=== PATIENT | male | born 1945 | race Caucasian/White ===

== ENCOUNTER → 2024-10-08 10:25 | Outpatient (REF) | payer MEDICARE, BC, SELFPAY | LOC: RCS 10:25 | PROVIDERS: ATTENDING PHYSICIAN Internal Medicine; FAMILY PHYSICIAN Student in an Organized Health Care Education/Training Program | DX: I50.21 Acute systolic (congestive) heart failure (principal) | CPT/HCPCS: 93306 ==

== ENCOUNTER 2024-10-09 08:48 | Day surgery (SDC) | payer MEDICARE, BC, SELFPAY ==
[2024-10-09] VITALS (10 sets, daily range): BP systolic 134–157; BP diastolic 80–125; BMI 23.7
[2024-10-09] MEDS: NSS 224 ML IV (10:15)
[2024-10-09 15:05] LABS: ACT-LR - POC 231 Seconds (116-155)
[2024-10-09 15:29] LABS: ACT-LR - POC 248 Seconds (116-155)
--- NOTE | 2024-10-09 19:43 | ITS.CL.PN ---
Java Web Architect - Procedure Note
Procedure
Procedure Note:
CARDIAC CATHETERIZATION REPORT
Date of Procedure: 10/09/2024
Referring: Dr. Christiano Amaral MD
Indication: cardiac arrest, heart failure with severely reduced ejection fraction
PROCEDURE(S)
1. right heart catheterization
2. left heart catheterization
3. coronary angiography
4. iFR LAD
ACCESS
1. 6F right radial artery (closure: radial band)
2. 5F right antecubital vein (closure: manual hemostasis)
CATHETERS
1. 5F [place]
2. 6F JR4
3. 6F JL5
4. 6F JL5 guide catheter
MODERATE SEDATION: 45 minutes of moderate sedation was utilized. An independent medical equipment technician was present to assist with and help manage the patient's level of consciousness and physiologic status.
ULTRASOUND GUIDED VASCULAR ACCESS (right radial artery): Ultrasound was utilized for vascular access. The vessel was visualized under ultrasound and noted to be patent. An image of the vessel was stored permanently in the patient's medical record.
Under direct ultrasound guidance, vascular access was obtained using a modified Seldinger technique and a 6 [place] sheath was placed.
ULTRASOUND GUIDED VASCULAR ACCESS (right brachial vein): Ultrasound was utilized for vascular access. The vessel was visualized under ultrasound and noted to be patent. An image of the vessel was stored permanently in the patient's medical record.
Under direct ultrasound guidance, vascular access was obtained using a modified Seldinger technique and a 5 [place] sheath was placed.
HEMODYNAMIC DATA
LV 138/14 (EDP 29) mmHg
AO 143/75 (mean 103) mmHg
RA 9 mmHg
RV 49/6 (EDP 10) mmHg
PA 47/21 (mean 31) mmHg
PCWP 23 mmHg
SaO2 93.7%
SvO2 68.0%
Hb 10.8 g/dL
CO/CI 6.36/3.31 L/min/m2
SVR 1182 dsc*-5
PVR 1.3 Wood units
CORONARY ANGIOGRAPHY
Dominance: Right
LM: Large, normal
LAD: Large vessel giving rise to a small D1, moderate caliber D2, and moderate caliber D3. There are tandem tubular 60% and 40% stenoses of the mid LAD between D2 and D3. These are angiographically mildly progressed from 2021. These were assessed
further with IFR.
LCx: Large vessel giving rise to a small OM1, moderate caliber OM 2, and large OM 3. There is no coronary artery disease.
RCA: Large vessel giving rise to a moderate caliber RPDA and moderate caliber RPL branch. There are trivial luminal irregularities only.
iFR of LAD
An Omni wire was flushed and zeroed outside the body and then advanced to the left main. The wire introducer was removed and the catheter flushed with saline, after which pressure of the wire and guide were normalized. The wire was advanced to the
mid LAD and iFR recorded at 0.91 (non-significant). iFR pullback was performed noting a focal pattern with most of the contribution from the proximal lesion. On return to the left main, iFR appropriately normalized to 0.98, confirming lack of wire
drift.
RADIATION: dose 748 mGy; DAP 45.5 Gy*cm2; fluoroscopy time 17.6 min
CONCLUSIONS
1. Nonobstructive coronary artery disease as described with iFR negative stenosis of the mid LAD and otherwise trivial luminal irregularities only. Coronary artery disease does not explain the patient's recent intraprocedural cardiac arrest.
2. Moderately elevated biventricular filling pressures, moderate postcapillary pulmonary hypertension, normal cardiac output, and no aortic stenosis.
RECOMMENDATIONS
1. Aggressive secondary prevention of coronary artery disease
2. Medical management of diastolic heart failure
Copy to: Dr. Christiano Amaral MD (syrup filterer); Dr. Shahbaz Orourke MD (PCP)
Signed: Osmani Matos MD, PhD
== END 2024-10-09 19:42 | disposition home or self-care (01) ==
LOC: CATH 08:48
PROVIDERS: ATTENDING PHYSICIAN Student in an Organized Health Care Education/Training Program; FAMILY PHYSICIAN Internal Medicine; OTHER PHYSICIAN Internal Medicine
DX: I25.10 Atherosclerotic heart disease of native coronary artery without angina pectoris (principal); I46.9 Cardiac arrest, cause unspecified; Z86.74 Personal history of sudden cardiac arrest; I27.29 Other secondary pulmonary hypertension; I50.30 Unspecified diastolic (congestive) heart failure; I10 Essential (primary) hypertension
CPT/HCPCS: 76937; 93460; 93799; 99152; 99153; C1769; C1887; C1894

== ENCOUNTER 2024-10-19 07:54 | Day surgery (SDC) | payer MEDICARE, BC, SELFPAY ==
[2024-10-19] VITALS (13 sets, daily range): BP systolic 99–141; BP diastolic 61–96; BMI 23.7
--- NOTE | 2024-10-19 08:48 | PTCARENOTE ---
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 Pt asymptomatic. Pt denies dizziness, lightheadedness, chest pain, and or SOB at this time. Michelle HORNER aware and in to evaluate pt. EKG ordered and performed with Michelle HORNER at pt
bedside. Immediately after obtaining EKG, pt's heart rate dropped into the 80's. Michelle HORNER ordered repeat EKG which was obtained. Both EKG's given to Michelle HORNER. Pt remains asymptomatic. Pt is here for EP study. Will continue to monitor.
--- NOTE | 2024-10-19 11:46 | ITS.EPS ---
Automatic Grinder Operator - EPS Report
EPS
Procedure Report:
Electrophysiology study:
Mr. Mills is a very pleasant 79 yr old gentleman with h/o cardiac arrest and noted to have LVEF of 10% at [facility] on 10/09/24 at showing non-obstructive disease with mid LAD 50% and otherwise trivial luminal irregularities
is noted to have frequent tachycardia episodes and was noted to have wide QRS complex with tachycardia and is sent for electrophysiology (EP) study and if ventricular arrhythmia is inducible then possible ICD placement.
Date of the Procedure:
10/19/2024
Indications: Wide-complex tachycardia
Pre-Operative Diagnosis: Wide-complex tachycardia with frequent PVCs
Post-Operative Diagnosis: Incessant supraventricular tachycardia with frequent PVCs.
Procedure Performed: EP study
Performing physician:
Liz Youngblood MD
Anesthesia:
See anesthesia records
Detailed Description of the Procedure:
Written informed consent was obtained from the patient after a full explanation of the risks and benefits of the procedure including the risks of sedation and anesthesia.
The patient was brought to the electrophysiology laboratory in stable condition in fasting state. Continuous electrocardiographic and hemodynamic monitoring was initiated. The initial rhythm was normal sinus.
The procedure site was meticulously prepared with surgical scrub and allowed to dry with no pooling. Sterile draping was applied to cover the procedure site. The image intensifier was draped with sterile bag and positioned over the patient.
After infusion of local anesthetic, vascular access was obtained under ultrasound guidance and sheaths were placed over guide wire as detailed below.
Sheaths:
��������� 7Fr sheath in right femoral vein
��������� 6Fr sheath in right femoral vein
��������� 6Fr sheath in right femoral vein
Catheters:
��������� 6Fr - Elmo Quad-cath at RVa
��������� 6Fr -Elmo-cath at HRA
��������� Decapolar Bard catheter - at locations of CS
Baseline intervals (milliseconds):
PP interval (baseline cycle length): 806
P wave duration: 123
TN interval: 212
QRS duration:130
QT interval: 410
AH interval: 108
His duration: 12
HV interval: 68
Q onset to RVa: 0
Sinus Node Function:
Burst pacing was performed from the right atrium to measure the sinus node recovery time (SNRT) and corrected sinus node recovery time (cSNRT). The sinus node functions are within acceptable normal range.
Atrioventricular Erin Function:
Atrial stimulation with incremental pacing intervals was performed from the high right atrium (HRA) and right ventricular apex (RVa) and antegrade and retrograde atrioventricular (AV) block cycle lengths were determined. The antegrade AV Wenckebach
was noted at 360 msec.
Patient had incessant tachycardia and full EP study could not be done.
The tachycardia was studied.
Tachycardia:
The tachycardia was studies with a cycle length of 480 msec. The tachycardia was concentric and had short VA time. The QRS was wide but similar to baseline IVCD. The abberation was likely due to tachycardia.
The tachycardia was entrained from the ventricle and the proximal and distal CS. The ventricle was out of the tachycardia cycle and attempt from the entrainment from CS maneuver terminated the tachycardia.
Following observations were noted.�
a) Simultaneous A and V (Septal VA interval of <70 ms was at 18msec).
b) Ventricular Overdrive pacing demonstrated a VAHV response
c) SA-VA >85 (214 � 18)
d) PPI-TCL >115msec (617 msec)
e) His Synchronous PVCs had no effect on the tachycardia and early PVC was able to terminate the tachycardia.
f) His synchronous PAC was not able to dissociate the atrium from the tachycardia.
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
There was different tachycardia noted at 370 msec with wobble of up to 500 msec that terminated with atrial pacing. This could be atrial tachycardia. The AVNRT was incessant and AT could not be studies in detail.
Ventricular stimulation showed concentric, midline and decremental retrograde conduction through the AV node and retrograde AV erin ERP could not be assessed accurately due to frequent PVCs.
There was slow AV conduction noted at baseline. There was dual pathway present but clear jump could not be assessed due to PVC and incessant tachycardia.
Ventricular Function:
Single ventricular extrastimuli were delivered following drive train of 600 msec and 400 msec the ventricular ERP was determined 220 msec. The ventricular electrical functions are within acceptable range.
Para-Hisian pacing:
The proximal CS was noted in the RA and the conduction from the RVa showed possible VA pathway and the Para-Hisian pacing was attempted. The high voltage captured the His with narrow QRS and VA time was 86 msec. The low voltage captured the RV with
wide QRS and the VA time was 168 msec. This is a erin response and septal accessory pathway was ruled out.�
Arrhythmia Induction:
Programmed stimulation including single, double and triple extrastimuli were delivered from the RVa. The burst pacing from the RVa was also attempted. The RVa was paced as per MUSTT protocol with no arrhythmia induced at drive train of 600 and then
at 400 msec with S1, S2, S3 and S4.
There was no arrhythmia induced with aggressive induction maneuvers.
No sustained ventricular arrhythmia was inducible. Patient however, continued to go into SVT.
Patient reported left chest pain with ventricular pacing. Further studies was not done due to fast rates.
Procedure End
Following the completion of the EP study, catheters were removed. The sheaths were removed and hemostasis achieved with manual compression.
Estimated Blood loss:
<5 cc
Specimens Removed:
None.
Implants / Devices:
None
Urine output:
None
Packs / Drains/ Tubes:
None
Instrument / Sponge Count Correct:
Yes
Complications of the Procedure:
None
Condition of Patient at Time of Transfer:
Hemodynamically stable with no neurological or vascular compromise.
Summary:
s/p electrophysiology study no sustained ventricular arrhythmia noted with incessant supra-ventricular tachycardia likely AVNRT and a second arrhythmia of atrial tachycardia.
Recommendation:
Admit overnight for observation
Bed side ECHO to rule out pericardial effusion
Possible SVT ablation in AM. 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
--- NOTE | 2024-10-19 14:39 | CM ---
Reviewed chart. Met with and Mrs. Mills to review discharge plans. He states prior to admission he rresides with his spouse in a two story home without any steps to enter. . He states he has a full flight of steps to get to bedroom/full
bathroom. He states he a powder room on the first floor. He states prior to admission he was independent with ambulation and adls. He states he does not have any DME in the home. He states he has a prescription plan and uses [facility]. The
discharge plan is to return home with his spouse when medically stable,
--- NOTE | 2024-10-19 15:58 | PTCARENOTE ---
received pt from brush clearing laborer at 1200. monitor placed. NSR with first degree block and occasional PVC. VSS. right femoral vein with figure 8 suture intact, dressing dry and intact. distal pulses palpable. On admission, pt stated last drink was 09/29/24,
[facility] protocol initiated and Michelle Mark PLATING MACHINE OPERATOR aware. Oriented to room and surroundings. call jensen within reach.
--- NOTE | 2024-10-19 16:06 | PTCARENOTE ---
Right femoral vein sutures removed per protocol. pt tolerated well. HOB elevated 30 degrees. instructed pt to call before getting OOB. pt verbalized understanding.
[2024-10-19] MEDS: THIAMINE INJECTION 200 MG IV (20:00)
[2024-10-19] MEDS: BENADRYL 50 MG PO (23:47)
[2024-10-20] VITALS (14 sets, daily range): BP systolic 114–136; BP diastolic 74–98; BMI 23.7
[2024-10-20 05:12] LABS: Hematocrit 33.1 % (39.0-52.0); Hemoglobin 11.4 g/dL (13.0-18.0); Mean Corp Hgb Conc. 34.4 g/dL (33.0-37.0); Mean Corpuscular Hgb 33.3 pg (27.0-31.0); Mean Corpuscular Volume 96.8 fL (80.0-94.0); Mean Platelet Volume 9.4 fL (7.4-10.4); Platelet Count 192 10^3/uL (130-400); Red Blood Cell Count 3.42 10^6/uL (4.70-6.10); Red Cell Dist. Width 12.4 % (11.5-14.5); White Blood Cell Count 5.9 10^3/uL (4.8-10.8)
[2024-10-20 05:42] LABS: Blood Urea Nitrogen 23 mg/dl (9-20); Calcium 9.3 mg/dl (8.4-10.2); Carbon Dioxide 25 mmol/L (22-30); Chloride 104 mmol/L (98-107); Estimated Creatinine Clearance 60 ml/min; Glucose 92 mg/dl (70-99); Magnesium 1.8 mg/dl (1.6-2.3); Sodium 139 mmol/L (135-145); eGFR > 60.00
--- NOTE | 2024-10-20 07:51 | W.PN.CD ---
Today's Communication / Plan
-
- Plan for SVT ablation
Impression / Plan
-
Mr. Mills is a very pleasant 79 yr old gentleman with h/o cardiac arrest and noted to have LVEF of 10% at [facility], s/p LHC on 10/09/24 at showing non-obstructive disease with mid LAD 50% and otherwise trivial luminal irregularities
is noted to have frequent tachycardia episodes and was noted to have wide QRS complex with tachycardia
s/p EP study
Wide complex tachycardia
- Significant conduction disease with IVCD
- Incessant SVT noted and rates of 150s would result in further aberration - possible looking lie VT
- EP study showed no sign of VT
- The wide complex tachycardia was SVT - a combination of AVNRT and AT
- Patient complained chest pain and was observed overnight.
- Bed side ECHO showed no sing of pericardial accumulation.
- Chest pain was atypical and was at the spot of EKG sticker - resolved.
- Metoprolol was given
- Plan discussed with incessant SVT, he has not been able to eat anything solid as he is missing his teeth.
- He would like to fix his arrhythmia as soon as possible so he can go back to his dentist to fix his teeth.
- He would like to undergo the ablation for his incessant SVT and i agree that his tachycardia of 150s bom is likely the cause for his fluctuating LVEF.
- Risks and benefits were explained. Consent obtained.
CHF
- LVEF 10% at [place] and recovered to 55% at
- Now incessant tachycardia - likely tachycardia induced cardiomyopathy.
- LVEF looked low on bedside ECHO but full study was not done.
- Repeat ECHO once tachycardia is resolved.
- [facility] 10/09/24: non obstructive CAD.
Physical Exam
Vital Signs/Labs
Vital Signs
Temp Pulse Resp BP Pulse Ox
97.7 F 68 18 118/78 97
10/20/24 07:05 10/20/24 05:15 10/20/24 07:05 10/20/24 04:39 10/20/24 07:05
10/19/24 10/20/24 10/21/24
06:59 06:59 06:59
Actual Weight 74.84 kg
10/20/24 04:58
10/20/24 04:58
Magnesium 1.8 mg/dl (1.6-2.3) 10/20/24 04:58
Physical Exam
Constitutional: No acute distress and Comfortable
EENT: Anicteric and Moist mucous membranes
Cardiovascular: Rhythm & rate is regular, Pedal edema is absent and JVD pressure is normal
Respiratory: Respiratory effort normal, Lungs clear to auscul. and Wheeze Absent
GI: Soft, Flat, Non tender and Normal bowel sounds
Neuro/Psych: Alert, Oriented, AO x 3 and Motor deficits absent
Other: Cath Site
Data Reviewed
-
Date of Service: October 20, 2024
Medical Decision Making: Reviewed Test Results, Test Interpretation and Review of Case with other Provider
EKG: Tracing Personally Visualized and interpreted
Echo: Tracing Personally Visualized and interpreted
X-Ray/CT/US/MRI/NUC/PET: Image Personally Visualized and interpreted
Labs: Labs Reviewed by me
Old Records: Reviewed
[2024-10-20] MEDS: TOPROL XL 25 MG PO (09:10)
[2024-10-20] MEDS: COZAAR 25 MG PO (09:10)
[2024-10-20] MEDS: FOLVITE 1 MG PO (09:10)
[2024-10-20] MEDS: ASPIR LOW (ENTERIC COATED) 81 MG PO (09:10)
[2024-10-20] MEDS: LIPITOR 40 MG PO (09:11)
[2024-10-20] MEDS: THIAMINE INJECTION 200 MG IV ×2 (09:13→20:29)
--- NOTE | 2024-10-20 10:15 | PTCARENOTE ---
received patient this am,patient remains NPO for ablation today.
--- NOTE | 2024-10-20 11:57 | CM ---
Reviewed chart. Met with and Mrs. Mills to review discharge plans. He states he is going to have an Ablation today. Prior to admission he resides with his spouse in a two story home without any steps to enter. He has a full flight of
steps to get to bedroom/full bathroom. He has a powder room on the first floor. Prior to admission he was independent with ambulation and adls. He does not have any DME in the home. He has a prescription plan and uses [facility]. The discharge
plan is to return home with his spouse when medically stable.
--- NOTE | 2024-10-20 16:15 | ITS.CL.ABL ---
Stick Feeder - Ablation
Ablation
Procedure Report:
Supra-Ventricular Tachycardia Ablation:
Mr. Mills is a very pleasant�79 yr old gentleman with supra-ventricular tachycardia (SVT) with significant conduction disease. He presented today to the EP lab for ablation of the SVT.
Date of Procedure:
10/20/2024
�
Indications: Supra-Ventricular Tachycardia (SVT)
�
Pre-Operative Diagnosis: Supra-Ventricular Tachycardia (SVT)
�
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
�
Procedure Performed: EP study and SVT ablation
�
Performing Physician:
Liz Youngblood MD
�
Assistants:
None
�
Anesthesia:
See anesthesia records
�
Detailed Description of the Procedure:
Written informed consent was obtained from the patient after a full explanation of the risks and benefits of the procedure including the risks of sedation and anesthesia. The patient was brought to the electrophysiology laboratory in stable
condition in fasting state. Continuous electrocardiographic and hemodynamic monitoring was initiated.
The initial rhythm was normal sinus.
The procedure site was meticulously prepared with surgical scrub and allowed to dry with no pooling. Sterile draping was applied to cover the procedure site. The image intensifier was draped with sterile bag and positioned over the patient.
Sheath and Catheter Placement:
After infusion of local anesthetic, vascular access was obtained under ultrasound guidance and sheaths were placed over guide wire as detailed below.
�
Sheaths:
- � � � 6 Fr sheath in right femoral vein
- � � � 6 Fr that was later upgraded to agilis sheath in right femoral vein
�
Catheters:
- � � � 6Fr - Elmo Quad-cath at RVa
- � � � Saphire 4 mm ablation catheter
�
�Following the sheaths placement, patient was given Heparin bolus and EP study was done.
Baseline intervals (milliseconds):
PP interval (baseline cycle length): 791
P wave duration:126
AK interval:191
QRS duration: 138
QT interval: 421
�
AH interval: 72
His duration: 18
HV interval: 63
Q onset to RVa: 0
��
Patient were again going into incessant SVT.
Tachycardia:
The tachycardia was studies with a cycle length of 470 msec. The tachycardia was concentric and had short VA time. The tachycardia was entrained from the ventricle and the proximal CS. The ventricle was out of the tachycardia cycle and attempt from
the entrainment from CS maneuver terminated the tachycardia. Following observations were noted. �
Following observations were noted.�
a) Simultaneous A and V (Septal VA interval of <70 ms was at 18msec).
b) Ventricular Overdrive pacing demonstrated a VAHV response
c) SA-VA >85 (214 � 18)
d) PPI-TCL >115msec (617 msec)
e) His Synchronous PVCs had no effect on the tachycardia and early PVC was able to terminate the tachycardia.
f) His synchronous PAC was not able to dissociate the atrium from the tachycardia.
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
The tachycardia once induced was easily inducible by simply moving the catheter in the annulus area. The RV entrainment again confirmed the diagnosis of AVNRT.
Electroanatomic 3D Mapping (EAM) and Ablation:
Patient was given Heparin bolus. The HRA was removed and was upgraded to 8Fr sheath for ablation catheter. EAM and radiofrequency ablation was performed using an non-irrigation, Saphire 4 mm radiofrequency ablation catheter. 3D mapping was performed
with [employer] software. Cardiac anatomy as established. His cloud was established. The triangle of White was marked with ablation catheter.
A slow pathway AVNRT ablation was pursued. Radiofrequency ablation lesions were applied to the anatomic slow pathway area targeting spike and dome electrograms with > 1:7 A:V ratio just below the His cloud. There was severe conduction disease and no
junctional There was no non-conducted beat.
Post Ablation EP study:
The post ablation EP study showed normal AV conduction. The AK was 191msec; QRS was 138msec; AH was 92msec with HV of 68msec. There was no sign of AV block noted.
There was decremental conduction noted via the AV node.
The AV deja ERP was 600/390msec.
The Ventricular ERP was 600/270ms. The VA deja ERP was <600/270ms.
Procedure End
Following the completion of the EP study, catheters were removed. The sheaths were removed and hemostasis achieved with placement of �figure of 8� suture and manual compression.
Recommendations:
��������� �Figure of 8� suture to be removed in 4 hours with another 1 hour of bedrest before slow ambulation.
�
Estimated Blood loss:
<5 cc
�
Specimens Removed:
None.
�
Implants / Devices:
None
�
Urine output:
None
�
Packs / Drains/ Tubes:
None
�
Instrument / Sponge Count Correct:
Yes
�
Complications of the Procedure:
None
�
Condition of Patient at Time of Transfer:
Hemodynamically stable with no neurological or vascular compromise.
�
Flouro time:
1.9 minutes / 6 mGy�
Summary:
Electrophysiology study with induction of atrioventricular deja re-entrant tachycardia (AVNRT) and successful modification of slow pathway.
(EP study, SVT ablation, 3D mapping)
--- NOTE | 2024-10-20 16:53 | PTCARENOTE ---
patient returned back from ablation. right fem. vein has figure 8, dsg. D/I, distal pulse palpable. patient very sleepy but arousable to voice, able to follow commands. EKG completed NSR with PAC's.
[2024-10-20] MEDS: BENADRYL 50 MG PO (23:13)
[2024-10-21 04:35] VITALS: BP 116/80
[2024-10-21 04:52] LABS: Hematocrit 32.5 % (39.0-52.0); Hemoglobin 11.4 g/dL (13.0-18.0); Mean Corp Hgb Conc. 35.1 g/dL (33.0-37.0); Mean Platelet Volume 9.4 fL (7.4-10.4); Platelet Count 189 10^3/uL (130-400); Red Blood Cell Count 3.35 10^6/uL (4.70-6.10); Red Cell Dist. Width 12.5 % (11.5-14.5); White Blood Cell Count 5.5 10^3/uL (4.8-10.8)
[2024-10-21 05:18] LABS: Blood Urea Nitrogen 21 mg/dl (9-20); Calcium 9.1 mg/dl (8.4-10.2); Carbon Dioxide 26 mmol/L (22-30); Chloride 106 mmol/L (98-107); Estimated Creatinine Clearance 66 ml/min; Glucose 90 mg/dl (70-99); Magnesium 1.8 mg/dl (1.6-2.3); Potassium 4.4 mmol/L (3.5-5.1); Sodium 140 mmol/L (135-145); eGFR > 60.00
--- NOTE | 2024-10-21 07:46 | W.PN.CD ---
Today's Communication / Plan
-
- Discharge home
- OK for dental procedure after 1 week
- F/u in office and needs ECHO in 1-2 months.
Impression / Plan
-
Mr. Mills is a very pleasant 79 yr old gentleman with h/o cardiac arrest and noted to have LVEF of 10% at [facility], s/p LHC on 10/09/24 at showing non-obstructive disease with mid LAD 50% and otherwise trivial luminal irregularities
is noted to have frequent tachycardia episodes and was noted to have wide QRS complex with tachycardia
s/p EP study
Wide complex tachycardia / Incessant SVT
- s/p EP study 10/19/24 and SVT ablation on 10/20/24
- Significant conduction disease with IVCD
- Incessant SVT noted and rates of 150s would result in further aberration - possible looking like VT
- EP study showed no sign of VT - No indication of ICD at this time.
- The wide complex tachycardia was SVT - a combination of AVNRT and AT
- Patient complained chest pain and was observed overnight.
- Bed side ECHO showed no sign of pericardial accumulation.
- s/p AVNRT ablation. Only non sustained AT noted post ablation.
- No SVT is inducible post ablation - significant difference from incessant SVT prior to ablation.
- Repeat ECHO in 1-2 months.
Pre-op evaluation
- Patient needs dental surgery and prosthesis
- OK to proceed with the dental surgery.
- Continue Metoprolol
- Low risk of SVT or VT now post ablation.
- Suggest wait a week post ablation for the procedure.
CHF
- LVEF 10% at [place] and recovered to 55% at
- h/o incessant tachycardia - likely tachycardia induced cardiomyopathy.
- LVEF looked low on bedside ECHO but full study was not done.
- Repeat ECHO once tachycardia is resolved in 1-2 months.
- [facility] 3/14/25: non obstructive CAD. Elevated filling pressures.
Disposition
-Stable for discharge.
Physical Exam
Vital Signs/Labs
Vital Signs
Temp Pulse Resp BP Pulse Ox
98.2 F 109 16 116/80 97
10/21/24 04:35 10/21/24 04:45 10/21/24 04:35 10/21/24 04:35 10/21/24 04:35
10/20/24 10/21/24 10/22/24
06:59 06:59 06:59
Actual Weight 74.84 kg 74.8 kg
10/21/24 04:42
10/21/24 04:42
Magnesium 1.8 mg/dl (1.6-2.3) 10/21/24 04:42
Physical Exam
Constitutional: No acute distress and Comfortable
EENT: Anicteric and Moist mucous membranes
Cardiovascular: Rhythm & rate is regular, Pedal edema is absent and JVD pressure is normal
Respiratory: Respiratory effort normal, Lungs clear to auscul. and Wheeze Absent
GI: Soft, Distention absent, Non tender and Normal bowel sounds
Neuro/Psych: Alert, Oriented, AO x 3 and Motor deficits absent
Other: Cath Site
Data Reviewed
-
Date of Service: October 21, 2024
Medical Decision Making: Reviewed Test Results, Test Interpretation and Review of Case with other Provider
EKG: Tracing Personally Visualized and interpreted
Echo: Report Reviewed by me
Labs: Labs Reviewed by me
Old Records: Reviewed
[2024-10-21 08:09] VITALS: BP 113/72
[2024-10-21] MEDS: ASPIR LOW (ENTERIC COATED) 81 MG PO (08:12)
[2024-10-21] MEDS: LIPITOR 40 MG PO (08:12)
[2024-10-21] MEDS: THIAMINE INJECTION 200 MG IV (08:13)
[2024-10-21] MEDS: COZAAR 25 MG PO (08:13)
[2024-10-21] MEDS: TOPROL XL 25 MG PO (08:13)
[2024-10-21] MEDS: FOLVITE 1 MG PO (08:18)
--- NOTE | 2024-10-21 09:49 | CM ---
Reviewed chart. Met with Mr. Mills to review discharge plans. He states he is feeling well and maybe able to go home soon. He states his spouse will be providing transportation home. Prior to admission he resides with his spouse in a two
story home without any steps to enter. He has a full flight of steps to get to bedroom/full bathroom. He has a powder room on the first floor. Prior to admission he was independent with ambulation and adls. He states he has been ambulating here
in the room. He does not have any DME in the home. He has a prescription plan and uses [facility]. The discharge plan is to return home with his spouse when medically stable.
--- NOTE | 2024-10-21 10:10 | W.DS.TRANS ---
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
-
Discharge Instructions:
Discharge Diagnosis/Procedures EP Study (10/19), SVT ablation (10/20)
Diet Low Cholesterol
Driving Restrictions No driving for 24 hours
Others Tests Echo in 1-2 months- will be arranged per
cardiology office
Instructions:
Stand-Alone Forms: DC Instructions- Cath/EP Lab
Changes to Home Medications: Yes
Discharge Medications:
DC Medications w/original date entered in [facility]
nitroglycerin 0.4 mg sublingual tablet 0.4 mg sublingual [id number] PRN chest pain #25 tabs 01/26/22
losartan 25 mg tablet 25 mg PO DAILY 10/09/24
aspirin 81 mg tablet,delayed release 81 mg PO DAILY 10/19/24
atorvastatin 40 mg tablet 40 mg PO DAILY 10/19/24
diphenhydramine HCl 50 mg capsule ([employer]) 50 mg PO HS 10/19/24
metoprolol succinate 25 mg tablet,extended release 24 hr 25 mg PO DAILY 10/19/24
folic acid 1 mg tablet 1 mg PO DAILY #30 tabs 10/21/24
Home Medication Changes
NEW: folic acid
Pending Results: No
--- NOTE | 2024-10-21 11:26 | PTCARENOTE ---
Discharge paperwork reviewed with patient and spouse. Both acknowledged understanding. All questions answered. IV and tele box removed. Patient wheeled down to lobby via wheelchair and nursing staff.
== END 2024-10-21 11:31 | disposition home or self-care (01) ==
LOC: CATH 07:54
PROVIDERS: Nurse Practitioner; Nurse Practitioner Adult Health; ATTENDING PHYSICIAN Internal Medicine Cardiovascular Disease; FAMILY PHYSICIAN Internal Medicine; OTHER PHYSICIAN Internal Medicine
DX: I47.19 Other supraventricular tachycardia (principal); I49.3 Ventricular premature depolarization; Z79.82 Long term (current) use of aspirin; Z79.899 Other long term (current) drug therapy; I10 Essential (primary) hypertension; F41.9 Anxiety disorder, unspecified; G47.00 Insomnia, unspecified; I25.10 Atherosclerotic heart disease of native coronary artery without angina pectoris; I44.4 Left anterior fascicular block; I47.20 Ventricular tachycardia, unspecified; I49.1 Atrial premature depolarization; I50.9 Heart failure, unspecified; I11.0 Hypertensive heart disease with heart failure; Z86.74 Personal history of sudden cardiac arrest; Z88.2 Allergy status to sulfonamides; Z88.1 Allergy status to other antibiotic agents
CPT/HCPCS: 93620; C1730 ×2; C1894 ×2; C1766; C1892; C1733; 80048; 83735; 85027; 93005; 93653